=== PATIENT | female | born 1940 | race Caucasian/White ===

== ENCOUNTER 2018-11-19 23:18 | Inpatient (IN) | payer MEDICARE, OTHER | END 2018-11-23 15:28 | disposition home or self-care (01) | LOC: ER 23:18 → ED HOLD 11-20 02:11 → ORTHO 4S 11-20 06:38 | DX: E16.2 Hypoglycemia, unspecified (principal); G93.41 Metabolic encephalopathy; N39.0 Urinary tract infection, site not specified; E87.1 Hypo-osmolality and hyponatremia; F03.90 Unspecified dementia, unspecified severity, without behavioral disturbance, psychotic disturbance, mood disturbance, and anxiety ==

== ENCOUNTER 2018-12-01 05:19 | Emergency (ER) | payer MEDICARE, OTHER ==
[~2018-12-01] VITALS: Ht 172.7 cm; Wt 100.0 kg
[~2018-12-01 05:19] MED LIST: ATOR10TA87 PO; BISA-155 PO; CALC-1197 PO; CARV-50 PO; CITA20TA28 PO; DONE-46 PO; FLUT1DIS4 INH; FLUT9.9S16; FURO-150 PO; INSU100C10 SQ; LANTUS SQ; LEVO500T2 PO; LEVO50TA8 PO; LINA5TAB4 PO; LISI-600 PO; LORA10TA7 PO; METF500T PO; POTA10TA10 PO; SITA25TA3 PO; SODI1TAB2 PO
[2018-12-01 05:23] VITALS: BP 147/47
[2018-12-01] MEDS ORDERED: acetaminophen 325mg tablet PO ONE (05:25)
--- NOTE | 2018-12-01 05:45 | NUR ---
REPORT CALLED TO [facility] - THEY ARE AWARE PT WILL BE RETURNING.
== END 2018-12-01 07:31 | disposition home or self-care (01) ==
LOC: ER 05:19
DX: S06.0X0A Concussion without loss of consciousness, initial encounter (principal); S00.81XA Abrasion of other part of head, initial encounter; E11.9 Type 2 diabetes mellitus without complications; I10 Essential (primary) hypertension; J44.9 Chronic obstructive pulmonary disease, unspecified; Z88.0 Allergy status to penicillin; Z79.4 Long term (current) use of insulin; Z79.84 Long term (current) use of oral hypoglycemic drugs; Z79.899 Other long term (current) drug therapy; W18.39XA Other fall on same level, initial encounter; Y93.01 Activity, walking, marching and hiking; Y92.89 Other specified places as the place of occurrence of the external cause; Y99.8 Other external cause status
CPT/HCPCS: 99284

== ENCOUNTER 2018-12-18 17:03 | Emergency (ER) | payer MEDICARE, OTHER ==
[~2018-12-18] VITALS: Ht 172.7 cm; Wt 93.0 kg
[~2018-12-18 17:03] MED LIST changes: -LEVO500T2 PO; +ONDA4TAB12 PO
[2018-12-18 17:45] VITALS: BP 142/72
[2018-12-18 17:53] LABS: BASOPHILS # (AUTO) 0.1 X10'3 (0-0.2); BASOPHILS % (AUTO) 0.8 % (0-1); EOSINOPHILS # (AUTO) 0.2 X10'3 (0-0.9); EOSINOPHILS % (AUTO) 2.1 % (0-6); HEMATOCRIT 36.6 % (35.0-45.0); HEMOGLOBIN 12.3 g/dl (12.0-16.0); LYMPHOCYTES # (AUTO) 1.2 X10'3 (1.1-4.8); LYMPHOCYTES % (AUTO) 13.3 % (21-51); MEAN CORPUSCULAR HEMOGLOBIN 29.6 PG (27.0-31.0); MEAN CORPUSCULAR HGB CONC 33.6 g/dL (33.0-36.5); MEAN CORPUSCULAR VOLUME 88.2 FL (78-98); MEAN PLATELET VOLUME 7.3 FL (7.4-10.4); MONOCYTES # (AUTO) 0.7 X10'3 (0-0.9); MONOCYTES % (AUTO) 7.2 % (2-12); NEUTROPHILS # (AUTO) 7.2 X10'3 (1.8-7.7); NEUTROPHILS % (AUTO) 76.6 % (42-75); PLATELET COUNT 293 X10'3 (140-440); RED BLOOD COUNT 4.16 X10'6 (4.20-5.60); RED CELL DISTRIBUTION WIDTH 14.7 % (11.5-14.5); WHITE BLOOD COUNT 9.4 X10'3 (4.5-11.0)
[2018-12-18 18:01] LABS: ALANINE AMINOTRANSFERASE 24 U/L (12-78); ALBUMIN 3.1 G/DL (3.4-5.0); ALBUMIN/GLOBULIN RATIO 0.9 (1.1-1.5); ALKALINE PHOSPHATASE 78 IU/L (46-116); ANION GAP 7 (8-16); ASPARTATE AMINO TRANSFERASE 16 U/L (10-37); BILIRUBIN,TOTAL 0.8 MG/DL (0.1-1.0); BLOOD UREA NITROGEN 8 MG/DL (7-18); BUN/CREATININE RATIO 10.5 (6.6-38.0); CALCIUM 8.6 MG/DL (8.5-10.1); CHLORIDE 87 MMOL/L (99-107); CREATININE 0.76 MG/DL (0.40-0.90); GLUCOSE 91 MG/DL (70-104); INR 1.1 INR; POTASSIUM 3.8 MMOL/L (3.5-5.1); PROTHROMBIN TIME 11.5 SECONDS (9.0-12.0); SODIUM 122 MMOL/L (135-145); TOTAL CARBON DIOXIDE 28.5 MMOL/L (24-32); TOTAL PROTEIN 6.7 G/DL (6.4-8.2); eGFR 74 ML/MIN
[2018-12-18 18:08] LABS: MAGNESIUM 1.3 MG/DL (1.5-2.4)
--- NOTE | 2018-12-19 07:39 | NUR ---
SPOKE WITH HAROON AT [facility] AND [facility]SP[facility] TO BE SET UP, VANS DO NOT START GOING OUT UNTIL AFTER 0830 AM
--- NOTE | 2018-12-19 07:45 | NUR ---
PT WEARS ADULT DIAPERS. PT HAS BEEN INCONTINENT, SKIN CLEANSED, NEW ADULT BRIEFS PLACED ON PT WELL NEW PANTS. PT PLACED IN WHEELCHAIR AND AWAITING TRANSPORT. PT WAS ORDERED BREAKFAST TRAY AND IS CURRENTLY EATING.
--- NOTE | 2018-12-19 08:22 | NUR ---
PT MOVED FROM [facility] TO BED 09 BY TAMY, PT WAITING TRANSPORTATION BACK TO [facility]
== END 2018-12-19 08:36 | disposition home or self-care (01) ==
LOC: ER 17:03
DX: S00.83XA Contusion of other part of head, initial encounter (principal); I50.9 Heart failure, unspecified; M54.5 Low back pain; M54.2 Cervicalgia; E11.9 Type 2 diabetes mellitus without complications; Z88.0 Allergy status to penicillin; Z79.899 Other long term (current) drug therapy; Z79.4 Long term (current) use of insulin; W19.XXXA Unspecified fall, initial encounter; Y93.89 Activity, other specified; Y92.89 Other specified places as the place of occurrence of the external cause; Y99.9 Unspecified external cause status
CPT/HCPCS: 36415; 70450; 71045; 72125; 80053; 83735; 83880; 84145; 84484; 85025; 85610; 93005; 99284

== ENCOUNTER 2019-07-15 05:20 | Emergency (ER) | payer MEDICARE, OTHER ==
[~2019-07-15] VITALS: Ht 167.6 cm; Wt 90.9 kg
[2019-07-15] MEDS ORDERED: TETanus/Pertussis (Acell)/Diphther VAC/PF (Tdap-Adult) 0.5ml syringe IM ONE (05:25)
[2019-07-15] MEDS ORDERED: acetaminophen 325mg tablet PO ONE (06:00)
--- NOTE | 2019-07-15 06:42 | NUR ---
Spoke to Trooval at [facility] who stated that he is unable to reach the pt's family at this time. He will return call if family is reached, or pt can be transported by [facility] [place] when thet're shuttle goes into service at 0830.
--- NOTE | 2019-07-15 06:45 | NUR ---
Attempted to contact brother, Wilmer. Unable to reach him, left message to please return a call to ED.
--- NOTE | 2019-07-15 08:34 | NUR ---
called [facility] and asked about shuttle and they said they would arrange transport. joana called back 5 mins later saying the shttle was getting ready and be here in 20 mins
[2019-07-15 09:04] VITALS: BP 123/78
== END 2019-07-15 09:05 | disposition home or self-care (01) ==
LOC: ER 05:20
DX: S06.0X0A Concussion without loss of consciousness, initial encounter (principal); S41.111A Laceration without foreign body of right upper arm, initial encounter; S51.011A Laceration without foreign body of right elbow, initial encounter; M54.5 Low back pain; E11.9 Type 2 diabetes mellitus without complications; F03.90 Unspecified dementia, unspecified severity, without behavioral disturbance, psychotic disturbance, mood disturbance, and anxiety; Z88.0 Allergy status to penicillin; Z79.899 Other long term (current) drug therapy; Z79.4 Long term (current) use of insulin; W01.0XXA Fall on same level from slipping, tripping and stumbling without subsequent striking against object, initial encounter; Y93.01 Activity, walking, marching and hiking; Y92.122 Bedroom in nursing home as the place of occurrence of the external cause; Y99.8 Other external cause status
CPT/HCPCS: 70450; 90471; 99284

== ENCOUNTER 2020-06-13 15:50 | Emergency (ER) | payer MEDICARE ==
[~2020-06-13] VITALS: Ht 172.7 cm; Wt 86.1 kg
[~2020-06-13 15:50] MED LIST changes: -CALC-1197 PO; +CALC-1215 PO
--- NOTE | 2020-06-13 16:24 | NUR ---
Call placed to [facility] for further information. Staff reported Pt had a fever last night of 102, given Tylenol, temp down to 99.7. Temkp checked today, back up to 102. Staff reports Pt only c/o weakness and "not felling good." No outward symptoms of cough, SOB or vomiting. Pt has Hx of dementia, baseline per staff is "alert with some confusion." Staff also mentioned that Pt had 1 recorded episode of diarrhea this afternoon, no episodes prior.
[2020-06-13] MEDS ORDERED: normal saline 1000ML IV soln IVB ONE (17:15)
[2020-06-13 17:45] LABS: BASOPHILS % (AUTO) 0.4 % (0-1); EOSINOPHILS % (AUTO) 0.1 % (0-6); HEMATOCRIT 30.2 % (35.0-45.0); HEMOGLOBIN 10.3 g/dl (12.0-16.0); LYMPHOCYTES # (AUTO) 0.4 X10'3 (1.1-4.8); LYMPHOCYTES % (AUTO) 5.3 % (21-51); MEAN CORPUSCULAR HEMOGLOBIN 31.4 PG (27.0-31.0); MEAN CORPUSCULAR VOLUME 92.4 FL (78-98); MEAN PLATELET VOLUME 8.2 FL (7.4-10.4); MONOCYTES # (AUTO) 0.4 X10'3 (0-0.9); MONOCYTES % (AUTO) 4.8 % (2-12); NEUTROPHILS # (AUTO) 7.2 X10'3 (1.8-7.7); NEUTROPHILS % (AUTO) 89.4 % (42-75); PLATELET COUNT 145 X10'3 (140-440); RED BLOOD COUNT 3.27 X10'6 (4.20-5.60); RED CELL DISTRIBUTION WIDTH 15.1 % (11.5-14.5); WHITE BLOOD COUNT 8.1 X10'3 (4.5-11.0)
[2020-06-13 18:00] LABS: ALANINE AMINOTRANSFERASE 11 U/L (12-78); ALBUMIN 3.2 G/DL (3.4-5.0); ALBUMIN/GLOBULIN RATIO 0.8 (1.1-1.5); ALKALINE PHOSPHATASE 80 IU/L (46-116); ANION GAP 7 (8-16); ASPARTATE AMINO TRANSFERASE 12 U/L (10-37); BLOOD UREA NITROGEN 39 MG/DL (7-18); BUN/CREATININE RATIO 27.1 (6.6-38.0); CALCIUM 8.7 MG/DL (8.5-10.1); CHLORIDE 92 MMOL/L (99-107); CREATININE 1.44 MG/DL (0.40-0.90); GLUCOSE 149 MG/DL (70-104); POTASSIUM 3.7 MMOL/L (3.5-5.1); SODIUM 126 MMOL/L (135-145); TOTAL CARBON DIOXIDE 26.8 MMOL/L (24-32); TOTAL PROTEIN 7.3 G/DL (6.4-8.2); eGFR 35 ML/MIN
[2020-06-13] MEDS ORDERED: CEPH-571 PO (18:08)
[2020-06-13] MEDS ORDERED: CefTRIAXone 2gm/D5W 50ml 50 ML IV ONE (18:10)
[2020-06-13 18:26] LABS: CLARITY,URINE SLIGHTLY CLOUDY (Clear); COLOR,URINE YELLOW (Yellow); GLUCOSE, URINE NEGATIVE (Neg); KETONES,URINE NEGATIVE (Neg); LEUKOCYTE ESTERASE ,URINE SMALL (Neg); NITRITES, URINE NEGATIVE (Neg); OCCULT BLOOD,URINE TRACE-INTACT (Neg); PH,URINE 5.5 (4.8-8.0); PROTEIN,URINE NEGATIVE (Neg); UA COLLECTION TYPE STRAIGHT CATH; UROBILINOGEN,URINE 0.2 E.U/dL (0.2-1.0)
[2020-06-13 18:41] LABS: BACTERIA,URINE 3+ /HPF (Neg); MUCUS STRANDS NONE SEEN /LPF (Neg); RBC,URINE 0-2 /HPF (0-2); SQUAMOUS EPITHELIAL CELL,UR MODERATE /LPF (FEW); WBC CLUMPS,URINE FEW /HPF (NEGATIVE)
[2020-06-13 20:51] VITALS: BP 116/74
== END 2020-06-13 20:52 | disposition home or self-care (01) ==
LOC: ER 15:51
DX: N39.0 Urinary tract infection, site not specified (principal); F03.90 Unspecified dementia, unspecified severity, without behavioral disturbance, psychotic disturbance, mood disturbance, and anxiety; E11.9 Type 2 diabetes mellitus without complications; M79.10 Myalgia, unspecified site; R51 Headache; R50.9 Fever, unspecified; Z88.0 Allergy status to penicillin; Z79.4 Long term (current) use of insulin; Z79.899 Other long term (current) drug therapy
CPT/HCPCS: 36415; 80053; 81001; 85025; 87077; 87088; 87186; 93005; 96365; 99284; J0696; J7030

== ENCOUNTER 2020-12-02 15:12 | Emergency (ER) | payer MEDICARE, OTHER ==
[~2020-12-02] VITALS: Ht 167.6 cm; Wt 90.9 kg
[~2020-12-02 15:12] MED LIST changes: +CEPH-571 PO; -LISI-600 PO; +LISI20TA28 PO
[2020-12-02] MEDS ORDERED: ipratropium/albuterol 3ml nebule NEB ONE (16:15)
[2020-12-02] MEDS ORDERED: methylPREDNISolone sod succ 125mg/2ml vial IV ONE (16:15)
[2020-12-02 16:41] LABS: BASOPHILS # (AUTO) 0.1 X10'3 (0-0.2); BASOPHILS % (AUTO) 1.3 % (0-1); EOSINOPHILS % (AUTO) 0.4 % (0-6); HEMATOCRIT 33.8 % (35.0-45.0); HEMOGLOBIN 11.5 g/dl (12.0-16.0); LYMPHOCYTES # (AUTO) 1.3 X10'3 (1.1-4.8); LYMPHOCYTES % (AUTO) 12.3 % (21-51); MEAN CORPUSCULAR HEMOGLOBIN 31.8 PG (27.0-31.0); MEAN CORPUSCULAR VOLUME 93.5 FL (78-98); MEAN PLATELET VOLUME 7.4 FL (7.4-10.4); MONOCYTES # (AUTO) 0.8 X10'3 (0-0.9); MONOCYTES % (AUTO) 8.1 % (2-12); NEUTROPHILS # (AUTO) 8.2 X10'3 (1.8-7.7); NEUTROPHILS % (AUTO) 77.9 % (42-75); PLATELET COUNT 307 X10'3 (140-440); RED BLOOD COUNT 3.62 X10'6 (4.20-5.60); RED CELL DISTRIBUTION WIDTH 16.4 % (11.5-14.5); WHITE BLOOD COUNT 10.5 X10'3 (4.5-11.0)
[2020-12-02 16:53] LABS: D-DIMER 1.33 MG/L FEU (0-0.50)
[2020-12-02 16:57] LABS: ALANINE AMINOTRANSFERASE 16 U/L (12-78); ALBUMIN 2.9 G/DL (3.4-5.0); ALBUMIN/GLOBULIN RATIO 0.7 (1.1-1.5); ALKALINE PHOSPHATASE 94 IU/L (46-116); ANION GAP 8 (8-16); ASPARTATE AMINO TRANSFERASE 16 U/L (10-37); BILIRUBIN,TOTAL 0.7 MG/DL (0.1-1.0); BLOOD UREA NITROGEN 15 MG/DL (7-18); BUN/CREATININE RATIO 16.5 (6.6-38.0); CALCIUM 8.5 MG/DL (8.5-10.1); CHLORIDE 92 MMOL/L (99-107); CREATININE 0.91 MG/DL (0.40-0.90); GLUCOSE 145 MG/DL (70-104); SODIUM 125 MMOL/L (135-145); TOTAL CARBON DIOXIDE 24.7 MMOL/L (24-32); TOTAL PROTEIN 7.1 G/DL (6.4-8.2); eGFR 60 ML/MIN
[2020-12-02] MEDS ORDERED: iohexol 350MG/ML 100ml bottle IV ONE (17:25)
[2020-12-02] MEDS ORDERED: albuterol 2.5 MG/3 ML nebule NEB ONE (17:35)
[2020-12-02] MEDS ORDERED: levoFLOXACIN 750MG TABLET PO ONE (18:10)
[2020-12-02] MEDS ORDERED: PRED10TA23 PO (18:11)
[2020-12-02] MEDS ORDERED: LEVO750T46 PO (18:11)
--- NOTE | 2020-12-02 19:00 | NUR ---
[facility] CONTACTED FOR TRANSFER. RESIDENTIAL CAREGIVER STATES THAT FAMILY DOES NOT ALLOW THEM TO TRANSFER PT. CALLED BOTH NEXT OF KIN AND LEFT MESSAGE, WILL CALL AGAIN
--- NOTE | 2020-12-02 19:44 | NUR ---
SPOKE WITH ROLANDO, SISTER IN LAW. WILL NOT VERIFY [facility] COST AND BELIEVES [facility] HAS THEIR OWN TRANSPORTATION VAN. CALLED [facility] - THEY ONLY USE [facility]. ATTEMPTED TO CALL ROLANDO BACK, BUT SHE DID NOT ANSWER THE PHONE - LEFT MESSAGE EXPLAINING TO CALL BACK WHEN SHE HAS A PLAN ON HOW SHE WILL GET PT BACK TO [facility].
--- NOTE | 2020-12-02 20:58 | NUR ---
CALLED [facility], DID NOT SALES CONSULTANT AGAIN. LEFT MESSAGE TO CALL BACK. WILL TRY AGAIN. ADMINISTRATIVE ASSISTANT DATA ENTRY NOTIFIED
--- NOTE | 2020-12-02 21:45 | NUR ---
I called both people on her list of people to call and it went both to voice mails. Informed them that this was the charge gang weigher calling and to call back, gave them the phone number to the ER. Informed them that she has been d/cd for quite some time, and that I need a phone call back for arrangements, and that [facility] needs to talk to them proir to them picking her up.
[2020-12-03 02:08] VITALS: BP 129/83
== END 2020-12-03 02:11 ==
LOC: ER 15:12
DX: J44.1 Chronic obstructive pulmonary disease with (acute) exacerbation (principal); J18.9 Pneumonia, unspecified organism; F03.90 Unspecified dementia, unspecified severity, without behavioral disturbance, psychotic disturbance, mood disturbance, and anxiety; R06.02 Shortness of breath; R06.2 Wheezing; E11.9 Type 2 diabetes mellitus without complications; Z85.118 Personal history of other malignant neoplasm of bronchus and lung; Z88.0 Allergy status to penicillin; Z79.2 Long term (current) use of antibiotics; Z79.899 Other long term (current) drug therapy
CPT/HCPCS: 36415; 71045; 71275; 80053; 85025; 85379; 93005; 94640; 96374; 99285; J2930; Q9967

== ENCOUNTER 2021-01-20 03:01 | Emergency (ER) | payer MEDICARE, OTHER ==
[~2021-01-20] VITALS: Ht 170.2 cm; Wt 72.7 kg
--- NOTE | 2021-01-20 03:13 | NUR ---
PT TO CT
--- NOTE | 2021-01-20 03:22 | NUR ---
Called into ER for level 1 stroke alert to bed#16, patient is with left sided weakness and slurred speech. She is able to follow commands without problem thouugh. Dr. López is on the telemedicine with her shortly after I came to her bedside.
[2021-01-20 03:24] LABS: BASOPHILS # (AUTO) 0.1 X10'3 (0-0.2); BASOPHILS % (AUTO) 1.3 % (0-1); EOSINOPHILS # (AUTO) 0.1 X10'3 (0-0.9); EOSINOPHILS % (AUTO) 2.1 % (0-6); HEMATOCRIT 32.4 % (35.0-45.0); HEMOGLOBIN 10.9 g/dl (12.0-16.0); LYMPHOCYTES % (AUTO) 14.2 % (21-51); MEAN CORPUSCULAR HEMOGLOBIN 31.4 PG (27.0-31.0); MEAN CORPUSCULAR HGB CONC 33.7 g/dL (33.0-36.5); MEAN CORPUSCULAR VOLUME 93.2 FL (78-98); MEAN PLATELET VOLUME 8.4 FL (7.4-10.4); MONOCYTES # (AUTO) 0.5 X10'3 (0-0.9); MONOCYTES % (AUTO) 6.9 % (2-12); NEUTROPHILS # (AUTO) 5.2 X10'3 (1.8-7.7); NEUTROPHILS % (AUTO) 75.5 % (42-75); PLATELET COUNT 196 X10'3 (140-440); RED BLOOD COUNT 3.47 X10'6 (4.20-5.60); RED CELL DISTRIBUTION WIDTH 16.1 % (11.5-14.5); WHITE BLOOD COUNT 6.8 X10'3 (4.5-11.0)
[2021-01-20] MEDS ORDERED: SENN-263 PO (03:30)
[2021-01-20] MEDS ORDERED: CARV-49 PO (03:30)
[2021-01-20] MEDS ORDERED: FLUT1DIS20 INH (03:30)
[2021-01-20] MEDS ORDERED: LOSA50TA3 PO (03:30)
[2021-01-20] MEDS ORDERED: FURO-150 PO (03:30)
[2021-01-20] MEDS ORDERED: OLAN7.5T3 PO (03:30)
[2021-01-20 03:32] LABS: PARTIAL THROMBOPLASTIN TIME 29 SECONDS (22-32)
[2021-01-20 03:35] LABS: ALANINE AMINOTRANSFERASE 19 U/L (12-78); ALBUMIN 3.1 G/DL (3.4-5.0); ALBUMIN/GLOBULIN RATIO 0.8 (1.1-1.5); ALKALINE PHOSPHATASE 102 IU/L (46-116); ANION GAP 13 (8-16); ASPARTATE AMINO TRANSFERASE 18 U/L (10-37); BILIRUBIN,TOTAL 0.7 MG/DL (0.1-1.0); BLOOD UREA NITROGEN 24 MG/DL (7-18); BUN/CREATININE RATIO 24.2 (6.6-38.0); CALCIUM 9.1 MG/DL (8.5-10.1); CHLORIDE 98 MMOL/L (99-107); CREATININE 0.99 MG/DL (0.40-0.90); GLUCOSE 173 MG/DL (70-104); POTASSIUM 3.9 MMOL/L (3.5-5.1); SODIUM 137 MMOL/L (135-145); TOTAL PROTEIN 7.1 G/DL (6.4-8.2); eGFR 54 ML/MIN
[2021-01-20 03:39] LABS: TROPONIN I < 0.04 NG/ML (0.0-0.05)
[2021-01-20] MEDS ORDERED: aspirin 81mg tab.chew PO ONE (03:40)
[2021-01-20] MEDS ORDERED: iohexol 350MG/ML 100ml bottle IV ONE (03:40)
--- NOTE | 2021-01-20 03:40 | NUR ---
RECEIVED CALL FROM DR CALDERON, RADIOLOGIST FOR [facility]. REPORTS POSSIBLE RIGHT SIDED MCA THROMBUS AND RECOMMENDS CTA WITH CONTRAST. [facility] MADE AWARE OF INFORMATION AND RECOMMENDATION
[2021-01-20] MEDS ORDERED: INSU100V9 SQ (04:16)
[2021-01-20] MEDS ORDERED: FLUT16SP11 BOTHNARES (04:16)
[2021-01-20] MEDS ORDERED: ONDA4TAB6 PO (04:16)
[2021-01-20] MEDS ORDERED: LISI20TA28 PO (04:16)
[2021-01-20] MEDS ORDERED: normal saline 1000ML IV soln IVB ONE (04:20)
[2021-01-20] MEDS ORDERED: MESSAGE TO NURSING PO NR (04:22)
--- NOTE | 2021-01-20 04:55 | NUR ---
Report called to Armida HUBBARD to [facility] regarding pt transfer. Transport code 3 called
--- NOTE | 2021-01-20 05:16 | NUR ---
The neuro evaluation from 032 is actually timed at 0340. I am unable to corect the time on the intervention at this time.
[2021-01-20 05:24] VITALS: BP 161/83
== END 2021-01-20 05:25 | disposition short-term general hospital (02) ==
LOC: ER 03:02
DX: I63.9 Cerebral infarction, unspecified (principal); I66.01 Occlusion and stenosis of right middle cerebral artery; I48.91 Unspecified atrial fibrillation; J44.9 Chronic obstructive pulmonary disease, unspecified; E11.9 Type 2 diabetes mellitus without complications; Z88.0 Allergy status to penicillin; Z79.4 Long term (current) use of insulin; Z79.899 Other long term (current) drug therapy
CPT/HCPCS: 36415; 70450; 70496; 70498; 71045; 80053; 84484; 85025; 85610; 85730; 93005; 99285; J7030; Q9967